=== PATIENT | female | born 1955 | race Caucasian/White ===

== ENCOUNTER 2017-09-27 10:49 | Emergency (ER) | payer OTHER, MEDICAID ==
[~2017-09-27] VITALS: Ht 157.5 cm; Wt 63.5 kg
[~2017-09-27 10:49] MED LIST: ADULT LOW DOSE81 MG PO; ALBUTEROL2.5 MG/31 INH; AMBIEN 10 MG TA10 MG PO; ARIMIDEX1 MG PO; ATIVAN0.5 MG PO; ATORVASTATIN CA10 MG PO; AZITHROMYCIN 2250 MG PO; BENADRYL25 MG PO; BENZTROPINE MES1 MG PO; CHLORDIAZEPO-A1 EACH PO; CHLORPROMAZINE50 M2 PO; CYMBALTA30 MG PO; DICLOFENAC SODI75 MG PO; DUONEB 2.5-0.5 M3 ML; DUONEB 2.5-0.5 M3 ML INH; FLEXERIL PO; GUANFACINE HCL E1 MG PO; HYDROCODONE-APA1 TA1 PO; IBUPROFEN 600600 M1 PO; LAMICTAL100 MG PO; LEVAQUIN 500 M500 M2 PO; LEVAQUIN 500 M500 M3; LEVOTHYROXINE 0.1 MG PO; LITHIUM CARBON300 M3 PO; LITHIUM CARBON450 MG PO; LITHIUM CARBON600 MG PO; LORAZEPAM 1 MG T1 M1 PO; LOVASTATIN 20 M20 MG; LYRICA 50 MG50 MG PO; MACROBID 100 M100 M1 PO; MEDROLDOSEPACK PO; NEURONTIN 300300 M1 PO; NOLVADEX20 MG PO; OXCARBAZEPINE600 MG PO; PREDNISONE 10 M10 M1; PREDNISONE 10 M10 M1 PO; PREDNISONE50 MG PO; PROAIR HFA8.5 GM INH; RISPERDAL 1 MG T1 MG PO; SERTRALINE HCL50 MG PO; SYNTHROID100 MCG PO; THORAZINE PO; TUSSIONEX PENN473 ML PO; TUSSIONEX PENNKI1 ML PO; VENTOLIN HFA 1818 GM INH; VITAMIN D PO; VITAMIN D1000 UNI1 PO; ZOFRAN ODT4 MG PO; ZOLOFT100 MG; ZOLOFT50 MG PO
[2017-09-27] MEDS ORDERED: VITAMINC500 PO (10:56)
[2017-09-27] MEDS ORDERED: VITAMIN D2000 UNIT PO (10:57)
[2017-09-27 11:14] LABS: ABSOLUTE BASOPHILS 0.1 thou/uL (0.0-0.2); ABSOLUTE EOSINOPHILS 0.1 thou/uL (0.0-0.7); ABSOLUTE LYMPHOCYTES 2.5 thou/uL (0.8-5.3); ABSOLUTE MONOCYTES 1.1 thou/uL (0.0-1.2); ABSOLUTE NEUTROPHILS 9.4 thou/uL (1.6-8.1); BASOPHILS 0.4 %; EOSINOPHILS 0.7 %; HEMATOCRIT 42.3 % (37.0-47.0); HEMOGLOBIN 13.9 gm/dL (12.0-15.0); LYMPHOCYTES 19.3 %; MCH 32.4 pg (26.0-34.0); MCHC 32.9 g/dL (28.0-37.0); MCV 98.3 fL (80.0-100.0); MPV 8.9 fl. (7.2-11.1); NUCLEATED RBCS 0 /100WBC; PLATELET COUNT* 399 thou/uL (150-400); POLYS 71.6 %; RDW-CV 14.2 % (10.5-14.5); WBC 13.2 thou/uL (4.0-11.0)
[2017-09-27 11:27] LABS: ANION GAP 13 mmol/L (7-16); BUN 14 mg/dL (7-18); CALCIUM 9.5 mg/dL (8.5-10.1); CHLORIDE 109 mmol/L (98-107); CO2 23 mmol/L (21-32); CREATININE 0.8 mg/dL (0.6-1.3); GLUCOSE 105 mg/dL (70-99); POTASSIUM 3.7 mmol/L (3.5-5.1); SODIUM 145 mmol/L (136-145)
[2017-09-27 11:34] LABS: ALBUMIN 3.9 g/dL (3.4-5.0); ALKALINE PHOSPHATASE 137 U/L (46-116); SGOT 13 U/L (15-37); SGPT 10 U/L (30-65); TOTAL BILIRUBIN 0.4 mg/dL (<0.1-1.0); TOTAL PROTEIN 7.2 g/dL (6.4-8.2); TROPONIN-I LEVEL <0.06 ng/mL (<0.06)
[2017-09-27] MEDS ORDERED: PREDNISONE 5 MG5 M1 PO (12:08)
[2017-09-27] MEDS ORDERED: VENTOLIN HFA INH8 GM INH (12:29)
[2017-09-27] MEDS ORDERED: DOXYCYCLINE 10100 MG PO (12:34)
[2017-09-27 12:41] VITALS: BP 150/81
--- NOTE | 2017-09-27 16:31 | EKG ---
[place] [address] ELECTROCARDIOGRAM REPORT Name: SHILPA BONNER Room: [facility]#: [id number] Admission: 09/27/17 Attend Phys: Discharge: 09/27/17 Date of : 57 Report #: [id number] THIS REPORT FOR: //name// [facility] ED Test Date: 2017-09-27 Test Time: 11:09:28 Pat Name: SHILPA BONNER Department: Room: Gender: F [employer]: CAROLIN : 1955 Requested By: Yvonne Rosario Order Number: [id number] MD: Marty Krueger Measurements Intervals [place] Rate: 68 P: 3 [place]: 205 QRS: -19 QRSD: 91 T: 36 QT: 404 QTc: 430 Interpretive Statements Sinus rhythm Inferior infarct, old Compared to ECG 03/07/2016 14:04:16 Myocardial infarct finding now present First degree AV block no longer present Incomplete right bundle-branch block no longer present Electronically Signed On 09-27-2017 16:31:21 CDT by Marty Krueger [email or web address] <ELECTRONICALLY SIGNED> By: Marty Krueger MD, FACC 09/27/17 1631 [id number] Marty Krueger MD, FAC /EPI
== END 2017-09-27 12:41 | disposition home or self-care (01) ==
LOC: M.ERS 10:49
PROVIDERS: Nurse Practitioner Family
DX: J20.9 Acute bronchitis, unspecified (principal); E03.9 Hypothyroidism, unspecified; F31.9 Bipolar disorder, unspecified; Z90.710 Acquired absence of both cervix and uterus; Z90.49 Acquired absence of other specified parts of digestive tract; Z88.5 Allergy status to narcotic agent; Z88.0 Allergy status to penicillin; Z88.1 Allergy status to other antibiotic agents; Z91.041 Radiographic dye allergy status